=== PATIENT | female | born 1955 | race Hispanic/Latino ===

== ENCOUNTER → 2018-03-08 | Outpatient (CLI) | payer MEDICAID | END | disposition home or self-care (01) | LOC: RAH 08:45 | PROVIDERS: ATTEND Internal Medicine Infectious Disease | DX: Z12.31 Encounter for screening mammogram for malignant neoplasm of breast (principal) | CPT/HCPCS: 77067 ==

== ENCOUNTER → 2019-03-09 | Outpatient (CLI) | payer MEDICARE, MEDICAID | END | disposition home or self-care (01) | LOC: RAH 11:01 | PROVIDERS: ATTEND Internal Medicine Infectious Disease | DX: Z12.31 Encounter for screening mammogram for malignant neoplasm of breast (principal) | CPT/HCPCS: 77067 ==

== ENCOUNTER 2019-05-19 16:16 | Emergency (ER) | payer MEDICARE ==
[2019-05-19] MEDS ORDERED: ACETAMINOPHEN 325 MG TAB ONE (16:46)
[2019-05-19] MEDS ORDERED: MORPHINE SULFATE 4 MG/1ML SYG ONE (18:14)
== END 2019-05-19 20:27 | disposition home or self-care (01) ==
LOC: EDH 16:16
DX: S82.002A Unspecified fracture of left patella, initial encounter for closed fracture (principal); I10 Essential (primary) hypertension; E78.00 Pure hypercholesterolemia, unspecified; Z86.73 Personal history of transient ischemic attack (TIA), and cerebral infarction without residual deficits; W01.0XXA Fall on same level from slipping, tripping and stumbling without subsequent striking against object, initial encounter; Y93.89 Activity, other specified; Y92.89 Other specified places as the place of occurrence of the external cause; Y99.8 Other external cause status
CPT/HCPCS: 29505; 73552; 73562; 96372; 99284; J2270